=== PATIENT | male | born 1950 | race Caucasian/White ===

== ENCOUNTER 2018-05-17 07:53 | Day surgery (SDC) | payer OTHER ==
[2018-05-17] VITALS (8 sets, daily range): BP systolic 105–132; BP diastolic 59–72; PULSE 71–78; RESP 17–19; TEMP 97.8–97.9; O2SAT 92–97
[~2018-05-17] VITALS: Ht 177.8 cm; Wt 76.4 kg
[~2018-05-17 07:53] MED LIST: BUSP5TAB PO; LEDI1TAB; LOSA50TA PO; VITA1000 PO; VITA10004 PO; VITA200C3 PO
[2018-05-17] MEDS ORDERED: LIDOCAINE HCL 1% 10 ML VIAL SQ ONE (07:54)
[2018-05-17] MEDS ORDERED: SODIUM CHLOR 0.9% 1000 ML IV SCH (09:00)
[2018-05-17] MEDS ORDERED: GELATIN 12 MM/7 MM FOAM ONE (11:00)
[2018-05-17] MEDS ORDERED: MIDAZOLAM HCL 2 MG/2 ML VIAL ONE ×2 (11:20)
--- NOTE | 2018-05-17 11:39 | PD.RAD ---
Post CT Procedure Prog Note Pre Procedure Diagnosis: (1) Chronic hepatitis C Post Procedure Diagnosis: (1) Chronic hepatitis C Procedure Date: May 17, 2018 Supervising Radiologist: Jhonatan Lyon Anesthesia: Conscious Sedation Plan of Activity Patient to Unit: [facility] Patient Condition: Good See PACS Report for procedural detail/treatment Jhonatan Lyon MD May 17, 2018 11:39
[2018-05-17 14:57] LABS: HEMATOCRIT 25.2 % (39.0-51.0); HEMOGLOBIN 8.3 GM/DL (13.0-17.0)
--- NOTE | 2018-05-17 14:59 | RADRPT ---
EXAM DATE: 05/17/2018 12:33 PM EDT AGE/SEX: 68 years / Male INDICATIONS: Liver biopsy CLINICAL DATA: This is the patient's initial encounter. Patient reports that signs and symptoms have been present for 1 day and indicates a pain score of 0/10. MEDICAL/SURGICAL HISTORY: Hepatitis C. Leukemia. Hypertension. None. COMPARISON: [facility] – [place], CT NEEDLE BIOPSY LIVER, 06/07/2013. . BIOPSY SITE: . liver MEDICATION(S): 4mg midazolam (Versed) IV 200mcg fentanyl (Sublimaze) IV DEVICE(S): 18 gauge BioPince needle One core specimen(s) sent to the laboratory for pathologic evaluation. . . PROCEDURE: CT guided . liver biopsy Conscious sedation with continuous EKG and oximetry monitoring. Prior to the procedure informed consent was obtained. Any appropriate prior imaging studies were rev iewed. Using automated exposure control and adjustment of the mA and/or kV according to patient size, radiat ion dose was kept as low as reasonably achievable to obtain optimal diagnostic quality images. DICOM format image data is available electronically for review and comparison. The site was prepped in a sterile fashion. Full sterile technique was used, including cap, mask, gini rile gloves and gown and a large sterile sheet. Hand hygiene and 2% chlorhexidine and/or betadine/al cohol prep was utilized per protocol for cutaneous antisepsis. The skin and subcutaneous tissues wer e infiltrated with local anesthetic solution. With CT guidance the previously identified target was localized. Biopsy was performed using the presc ribed needle as above. Adequate hemostasis was obtained with compression at the puncture site. Follow-up CT scan reveals no hemorrhage. The patient tolerated the procedure well and there were no complications. The patient was returned to the Radiology Outpatient Unit in stable condition. CONCLUSION: 1. Uncomplicated CT guided biopsy. Electronically signed by: Jhonatan Lyon MD 05/17/2018 2:58 PM EDT
== END 2018-05-17 15:15 | disposition home or self-care (01) ==
LOC: HRAD 07:53 → HRIP 07:57 → HRAD 15:15
PROVIDERS: ATTEND Physician Assistant Medical
DX: B18.2 Chronic viral hepatitis C (principal); I10 Essential (primary) hypertension; C95.90 Leukemia, unspecified not having achieved remission
CPT/HCPCS: 36430; 47000; 77012; 85014; 85018; 88307; 88313; 99152; 99153; J2250; J3010; J7030; P9035; 96365